=== PATIENT | female | born 1990 | race African-American/Black ===

== ENCOUNTER 2017-04-27 23:49 | Emergency (ER) | payer OTHER ==
[2017-04-27 23:59] VITALS: TEMP 97.9; O2SAT 100
--- NOTE | 2017-04-28 01:08 | C.PDOC ---
History Of Present Illness pt slipped and fell on ice last tuesday (10 days ago). Complaining of chest pain , worsening with movement and deep inspiration. 6/10 pain. Saw her pmd, had negative cxr and was started on meloxicam , without improvement. No f/c/n/v. Speaking in complete sentences. Tolerating po. Time Seen by Provider: 04/28/17 01:08 Chief Complaint (Nursing): Chest Pain History Per: Patient History/Exam Limitations: no limitations Onset/Duration Of Symptoms: Days (10) Current Symptoms Are (Timing): Still Present Context: Recent Trauma Severity: Severe Pain Scale Rating Of: 5 Quality: Sharp Associated Symptoms: denies: Nausea Exacerbating Factors: Turning, Movement, Deep Breathing, Exertion Alleviating Factors: None Recent travel outside of the [place]: No Additional History Per: Family Past Medical History Reviewed: Historical Data, Nursing Documentation, Vital Signs Vital Signs: Last Vital Signs Temp 97.9 F 04/27/17 23:54 Pulse 77 04/28/17 02:01 Resp 18 04/28/17 02:01 BP 108/69 04/28/17 02:01 Pulse Ox 100 04/28/17 02:59 - Medical History PMH: Migraine (NO RX MEDICATION) Denies: Chronic Kidney Disease Family History: States: No Known Family Hx - Social History Hx Alcohol Use: Yes Hx Substance Use: No - Immunization History Hx Tetanus Toxoid Vaccination: No Hx Influenza Vaccination: No Hx Pneumococcal Vaccination: No Review Of Systems Constitutional: Negative for: Fever, Chills Eyes: Negative for: Redness ENT: Negative for: Throat Pain Cardiovascular: Positive for: Chest Pain Respiratory: Negative for: Shortness of Breath Gastrointestinal: Negative for: Nausea, Vomiting, Abdominal Pain Genitourinary: Negative for: Dysuria Musculoskeletal: Negative for: Back Pain Skin: Negative for: Rash Neurological: Negative for: Weakness Psych: Negative for: Anxiety Physical Exam - Physical Exam Appears: Non-toxic Skin: Warm, Dry Head: Normacephalic Eye(s): bilateral: Normal Inspection Oral Mucosa: Moist Neck: Supple Chest: Symmetrical, No Deformity, Tenderness (sternal), No Ecchymosis, No Subcutaneous Emphysema Cardiovascular: Rhythm Regular Respiratory: No Rales, No Rhonchi, No Wheezing Gastrointestinal/Abdominal: Soft, No Tenderness Back: No CVA Tenderness Extremity: Normal ROM Extremity: Bilateral: Atraumatic Pulses: Left Dorsalis Pedis: Normal, Right Dorsalis Pedis: Normal Neurological/Psych: Oriented x3, Normal Speech, Normal Cognition Gait: Steady ED Course And Treatment - Laboratory Results Result Diagrams: 04/28/17 01:26 04/28/17 01:26 ECG: Interpreted By Me, Viewed By Me ECG Rhythm: Sinus Rhythm (76), Nonspecific Changes O2 Sat by Pulse Oximetry: 100 Pulse Ox Interpretation: Normal Reevaluation Time: 03:07 Reassessment Condition: Improved Medical Decision Making Medical Decision Making: Time: 257 --CT chest without contrast FINDINGS: No evidence of vascular injury. No pneumothorax. No fractures. No effusions. No pulmonary contusions. There is residual thymic tissue in the anterior mediastinum. The visualized portions of the upper abdomen appear grossly normal. IMPRESSION: No acute findings. Disposition Counseled Patient/Family Regarding: Studies Performed, Diagnosis, Need For Followup, Rx Given - Disposition Disposition: HOME/ ROUTINE Disposition Time: 03:07 Condition: FAIR Additional Instructions: Please follow up with your own doctor. Do not take the meloxicam. Prescriptions: Ketorolac Tromethamine [Toradol] 10 mg PO TID PRN #20 tab PRN Reason: Pain, Moderate (4-7) Instructions: Chest Wall Pain (ED) Forms: [facility] (Georgian) - Clinical Impression Clinical Impression: Anterior chest wall pain, Chest wall contusion
[2017-04-28] MEDS ORDERED: Sodium Chloride 0.9% 1,000 ML IV ONE (01:18)
[2017-04-28 01:30] LABS: BASO % 0.2 % (0.0-2.0); EOS # 0.1 K/uL (0.0-0.7); EOS % 1.3 % (0.0-4.0); HEMOGLOBIN 11.7 g/dL (11.0-16.0); LYMPH # 4.3 K/uL (1.0-4.3); LYMPH % 50.1 % (20.0-40.0); MEAN CELL VOLUME 92.9 fL (81.0-99.0); MEAN CORPUSCULAR HEMOGLOBIN 32.3 pg (27.0-31.0); MEAN CORPUSCULAR HGB CONC 34.8 g/dL (33.0-37.0); MEAN PLATELET VOLUME 8.1 fL (7.2-11.7); MONO # 0.5 K/uL (0.0-0.8); MONO % 5.5 % (0.0-10.0); NEUT # 3.7 K/uL (1.8-7.0); NEUT % 42.9 % (50.0-75.0); RBC 3.63 Mil/uL (3.80-5.20); RED CELL DISTRIBUTION WIDTH 12.9 % (11.5-14.5); WHITE BLOOD COUNT 8.5 K/uL (4.8-10.8)
[2017-04-28] MEDS ORDERED: Sodium Chloride 0.9% 1,000 ML ONE (01:35)
[2017-04-28 01:48] LABS: ALB/GLOB RATIO 1.4 (1.0-2.1); ALT/SGPT 22 U/L (9-52); AST/SGOT 18 U/L (14-36); BLOOD UREA NITROGEN 14 mg/dL (7-17); CALCIUM 9.2 mg/dl (8.6-10.4); GFR AFRICAN-AMERICAN > 60; GFR NON-AFRICAN AMERICAN > 60
[2017-04-28 01:50] LABS: SQUAMOUS EPITHIAL 1 /hpf (0-5); URINE BACTERIA RARE (<OCC); URINE BILIRUBIN NEGATIVE (NEGATIVE); URINE CLARITY Turbid (Clear); URINE COLOR Yellow (YELLOW); URINE GLUCOSE (UA) NORMAL (Normal); URINE LEUKOCYTE ESTERASE NEG Leu/uL (Negative); URINE NITRATE NEGATIVE (NEGATIVE); URINE PROTEIN NEGATIVE (NEGATIVE); URINE UROBILINOGEN NORMAL mg/dL (0.2-1.0); WBC CLUMPS FEW /hpf
[2017-04-28 01:51] LABS: URINE BLOOD 1+ (NEGATIVE)
[2017-04-28 01:52] LABS: HCG,QUALITATIVE URINE NEGATIVE (NEGATIVE)
--- NOTE | 2017-04-28 02:58 | CT ---
EXAM: CT Chest Without Intravenous Contrast EXAM DATE/TIME: 04/28/2017 1:20 AM CLINICAL HISTORY: 27 years old, female; Pain; Chest pain; Additional info: Strenal pain after fall TECHNIQUE: Axial computed tomography images of the chest without intravenous contrast. All CT scans at this facility use one or more dose reduction techniques, viz.: automated exposure control; ma/kV adjustment per patient size (including targeted exams where dose is matched to indication; i.e. head); or iterative reconstruction technique. Coronal and sagittal reformatted images were created and reviewed. COMPARISON: No relevant prior studies available. FINDINGS: No evidence of vascular injury. No pneumothorax. No fractures. No effusions. No pulmonary contusions. There is residual thymic tissue in the anterior mediastinum. The visualized portions of the upper abdomen appear grossly normal. IMPRESSION: No acute findings.
[2017-04-28 03:21] VITALS: BP 111/64; PULSE 84; RESP 19
--- NOTE | 2017-04-28 20:56 | CARD ---
APPROVED REPORT EKG Measurement Heart [id number] [place] [id number] <Conclusion> Sinus rhythm with fusion complexes Otherwise normal ECG
== END 2017-04-28 03:21 | disposition home or self-care (01) ==
LOC: C.ER 23:49
DX: S20.219A Contusion of unspecified front wall of thorax, initial encounter (principal); W00.0XXA Fall on same level due to ice and snow, initial encounter; R07.89 Other chest pain
CPT/HCPCS: 71250; 80053; 81001; 84703; 85025; 93005; 96361; 96374; 99285; J1885; J7040